=== PATIENT | male | born 1950 | race Caucasian/White ===

== ENCOUNTER 2019-04-09 07:06 | Day surgery (SDC) | payer MEDICARE ==
[2019-04-07 11:21] LABS: BASOPHILS # (AUTO) 0.1 X10'3 (0-0.2); EOSINOPHILS # (AUTO) 0.2 X10'3 (0-0.9); EOSINOPHILS % (AUTO) 2.9 % (0-6); LYMPHOCYTES # (AUTO) 1.4 X10'3 (1.1-4.8); LYMPHOCYTES % (AUTO) 17.6 % (21-51); MEAN CORPUSCULAR HEMOGLOBIN 32.2 PG (27.0-31.0); MEAN CORPUSCULAR VOLUME 92.1 FL (78-98); MEAN PLATELET VOLUME 8.2 FL (7.4-10.4); MONOCYTES # (AUTO) 0.8 X10'3 (0-0.9); MONOCYTES % (AUTO) 9.6 % (2-12); NEUTROPHILS # (AUTO) 5.6 X10'3 (1.8-7.7); NEUTROPHILS % (AUTO) 68.9 % (42-75); PRE OP HEMATOCRIT 51.1 % (42.0-52.0); PRE OP HEMOGLOBIN 17.9 g/dL (14.0-17.9); PRE OP PLATELET COUNT 179 X10'3 (140-440); RED BLOOD COUNT 5.55 X10'6 (4.70-6.10); RED CELL DISTRIBUTION WIDTH 14.2 % (11.5-14.5)
[2019-04-07 11:27] LABS: CLARITY,URINE CLEAR (Clear); COLOR,URINE YELLOW (Yellow); GLUCOSE, URINE NEGATIVE (Neg); KETONES,URINE NEGATIVE (Neg); LEUKOCYTE ESTERASE ,URINE NEGATIVE (Neg); NITRITES, URINE NEGATIVE (Neg); OCCULT BLOOD,URINE NEGATIVE (Neg); PROTEIN,URINE NEGATIVE (Neg); UROBILINOGEN,URINE 0.2 E.U/dL (0.2-1.0)
[2019-04-07 11:28] LABS: UA COLLECTION TYPE CLN CATCH MIDSTREAM
[2019-04-07 11:32] LABS: PRE OP PROTIME 16.1 SECONDS (9.0-12.0)
[2019-04-07 11:34] LABS: PRE OP INR 1.6 INR
[2019-04-07 12:51] LABS: ALBUMIN 3.9 G/DL (3.4-5.0); ALBUMIN/GLOBULIN RATIO 1.3 (1.1-1.5); ALKALINE PHOSPHATASE 95 IU/L (46-116); BLOOD UREA NITROGEN 19 MG/DL (7-18); CALCIUM 8.7 MG/DL (8.5-10.1); CHLORIDE 105 MMOL/L (99-107); CREATININE 1.19 MG/DL (0.60-1.10); PRE OP ALT 41 U/L (30-65); PRE OP ANION GAP 7 (8-16); PRE OP AST 23 U/L (10-37); PRE OP BILIRUB, TOTAL 1.1 MG/DL (0.0-1.0); PRE OP GLUCOSE 88 MG/DL (70-104); PRE OP POTASSIUM 4.7 MMOL/L (3.4-5.1); PRE OP SODIUM 141 MMOL/L (135-145); TOTAL CARBON DIOXIDE 28.7 MMOL/L (24-32); TOTAL PROTEIN 6.8 G/DL (6.4-8.2); eGFR 60 ML/MIN
[~2019-04-09] VITALS: Ht 172.7 cm; Wt 90.5 kg
[2019-04-09] VITALS (11 sets, daily range): BP systolic 114–151; BP diastolic 48–93
[~2019-04-09 07:06] MED LIST: ATOR40TA72 PO; DOCUMENT DATE & TIME OF BETA-BLOCKER PO ONE; METO50TA16 PO; WARF-55 PO; ceFOXitin 2 GM ADDvantage bag 100 ML IV ONE; famotidine 10mg tablet PO ONE; ringers solution, lacted 1,000 ML IV SCH
[2019-04-09 10:30] LABS: PRE OP INR 1.1 INR; PRE OP PROTIME 11.4 SECONDS (9.0-12.0)
[2019-04-09] MEDS ORDERED: ceFAZolin 1000mg inj ONE (11:51)
[2019-04-09] MEDS ORDERED: BUPIVAcaine/PF 2.5 mg/ml (0.25%) 30ml vial ONE (11:51)
[2019-04-09] MEDS ORDERED: proCHLORperazine 10 MG/2 ml inj IV PRN (12:25)
[2019-04-09] MEDS ORDERED: meperidine/PF 25mg/ml syringe IV PRN ×2 (12:25)
[2019-04-09] MEDS ORDERED: ringers solution, lacted 1,000 ML IV SCH (12:25)
[2019-04-09] MEDS ORDERED: ondansetron/PF 4mg/2ml inj IV PRN (12:25)
[2019-04-09] MEDS ORDERED: morphine 4 MG/ML inj SYRINge IV PRN (12:25)
[2019-04-09] MEDS ORDERED: neostigmine methylsulfate 1 MG/ML 10ml vial ONE (13:38)
[2019-04-09] MEDS ORDERED: rocuronium 10mg/ml inj IV ONE (13:38)
[2019-04-09] MEDS ORDERED: desflurane 240ml liquid inh. IH ONE (13:38)
[2019-04-09] MEDS ORDERED: fentaNYL/PF 50MCG/1 ML 2ML syringe ONE (13:50)
[2019-04-09] MEDS ORDERED: propofol inj 20 ML IV ONE (13:51)
[2019-04-09] MEDS ORDERED: LIDOcaine 2% (20mg/ml) 5ml vial ONE (13:51)
[2019-04-09] MEDS ORDERED: midazolam 2 mg/2 ml injection ONE (13:51)
[2019-04-09] MEDS ORDERED: ondansetron/PF 4mg/2ml inj ONE (13:58)
[2019-04-09] MEDS ORDERED: dexamethasone sod phosphate 4mg/ml inj. ONE (13:58)
[2019-04-09] MEDS ORDERED: acetaminophen 1,000mg/100ml IV 100 ML IV ONE (14:20)
[2019-04-09] MEDS ORDERED: glycopyrrolate 0.2mg/ml inj ONE (14:45)
--- NOTE | 2019-04-09 14:48 | NUR ---
Received from OR via [employer] , accompanied by Anesthesiologist WILTON and report given by Anesthesiolgist. PATIENT WITH 20G PIV IN LEFT UE RUNNING LR AT 100. MEDICATED UPON ARRIVAL FOR PAIN. 4 ABDOMINAL LAP SITES PRESENT. PATIENT TOSSING AND TURNING ON [employer] VSS AT THIS TIME. Addendum: 04/09/19 at 1503 by Iam Gusman RN, RN Amended: Links added.
[2019-04-09] MEDS: meperidine/PF 25mg/ml syringe IV PRN ×2 (14:54→15:07)
[2019-04-09] MEDS: morphine 4 MG/ML inj SYRINge IV PRN ×2 (15:18→15:42)
--- NOTE | 2019-04-09 17:28 | NUR ---
ALL DC CRITERIA FOR HOME HAS BEEN ACHIEVED. OUT VIA WHEELCHAIR TO PERSONAL VEHICLE WHERE FAMILY DROVE HIM HOME. IV OUT WITHOUT COMPLICATIONS. DENIES PAIN. PATIENT VSS. Addendum: 04/09/19 at 1731 by Iam Gusman RN, RN Amended: Links added.
== END 2019-04-09 17:11 | disposition home or self-care (01) ==
LOC: PAS 07:06
PROVIDERS: ATTEND Surgery
DX: K80.10 Calculus of gallbladder with chronic cholecystitis without obstruction (principal); I10 Essential (primary) hypertension; E78.5 Hyperlipidemia, unspecified; Z86.718 Personal history of other venous thrombosis and embolism; Z79.01 Long term (current) use of anticoagulants; Z88.5 Allergy status to narcotic agent; Z79.899 Other long term (current) drug therapy
CPT/HCPCS: 36415; 47562; 80053; 81003; 82948; 85025; 85610; 85730; 93005; J0131; J0690; J0694; J1100; J2001; J2175; J2250; J2270; J2405; J2704; J2710; J3010; J3490; J7120; 88304; A4215; A4618; A7000

== ENCOUNTER 2021-05-14 11:31 | Emergency (ER) | payer MEDICARE ==
[~2021-05-14] VITALS: Ht 172.7 cm; Wt 89.3 kg
[~2021-05-14 11:31] MED LIST changes: -DOCUMENT DATE & TIME OF BETA-BLOCKER PO ONE; -ceFOXitin 2 GM ADDvantage bag 100 ML IV ONE; -famotidine 10mg tablet PO ONE; -ringers solution, lacted 1,000 ML IV SCH
[2021-05-14 13:19] LABS: BASOPHILS % (AUTO) 0.6 % (0-1); EOSINOPHILS # (AUTO) 0.1 X10'3 (0-0.9); EOSINOPHILS % (AUTO) 1.6 % (0-6); HEMATOCRIT 50.4 % (42.0-52.0); HEMOGLOBIN 17.5 g/dl (14.0-17.9); LYMPHOCYTES # (AUTO) 1.3 X10'3 (1.1-4.8); MEAN CORPUSCULAR HGB CONC 34.7 g/dL (33.0-36.5); MEAN CORPUSCULAR VOLUME 92.2 FL (78-98); MONOCYTES # (AUTO) 0.7 X10'3 (0-0.9); MONOCYTES % (AUTO) 10.3 % (2-12); NEUTROPHILS # (AUTO) 4.3 X10'3 (1.8-7.7); NEUTROPHILS % (AUTO) 67.5 % (42-75); PLATELET COUNT 160 X10'3 (140-440); RED BLOOD COUNT 5.47 X10'6 (4.70-6.10); RED CELL DISTRIBUTION WIDTH 14.3 % (11.5-14.5); WHITE BLOOD COUNT 6.4 X10'3 (4.5-11.0)
[2021-05-14 13:22] LABS: ALANINE AMINOTRANSFERASE 103 U/L (12-78); ALBUMIN/GLOBULIN RATIO 1.3 (1.1-1.5); ALKALINE PHOSPHATASE 114 IU/L (46-116); ANION GAP 9 (8-16); ASPARTATE AMINO TRANSFERASE 39 U/L (10-37); BLOOD UREA NITROGEN 16 MG/DL (7-18); BUN/CREATININE RATIO 14.5 (5.4-32.0); CALCIUM 9.1 MG/DL (8.5-10.1); CHLORIDE 106 MMOL/L (99-107); GLUCOSE 97 MG/DL (70-104); POTASSIUM 4.8 MMOL/L (3.5-5.1); SODIUM 142 MMOL/L (135-145); eGFR 66 ML/MIN
[2021-05-14 13:40] VITALS: BP 156/78
== END 2021-05-14 13:41 | disposition home or self-care (01) ==
LOC: ER 11:32
DX: M25.562 Pain in left knee (principal); R07.89 Other chest pain; F41.9 Anxiety disorder, unspecified; Z86.718 Personal history of other venous thrombosis and embolism; Z86.711 Personal history of pulmonary embolism; Z88.5 Allergy status to narcotic agent; Z79.899 Other long term (current) drug therapy
CPT/HCPCS: 36415; 71045; 80053; 83880; 84484; 85025; 93005; 93970; 99285

== ENCOUNTER 2024-12-17 10:57 | Day surgery (SDC) | payer MEDICARE ==
[~2024-12-17] VITALS: Ht 172.7 cm; Wt 77.5 kg
[2024-12-17] VITALS (11 sets, daily range): BP systolic 107–145; BP diastolic 53–69; PULSE 51–56; RESP 16; TEMP 98.2; O2SAT 16–96
--- NOTE | 2024-12-17 11:22 | ELECTROCARDIOGRAPH REPORT ---
[facility] Test Date: 2024-12-17 Test Time: 11:19:19 Pat Name: EHSAN KUMAR Department: [facility] Patient ID: [id number] Room: Gender: M Polysomnographic Tech: : 1950 Requested By: TREVER SNELL Order Number: [id number] Reading MD: Dr. AWA Troy Measurements Intervals [place] Rate: 54 P: 23 LA: 170 QRS: 2 QRSD: 97 T: 21 QT: 444 QTc: 421 Interpretive Statements Sinus rhythm Probable left atrial enlargement RSR' in V1 or V2, probably normal variant Electronically Signed On 12-17-2024 14:44:[address] AWA Troy Please click the below link to view image of tracing.
[2024-12-17 11:36] LABS: MEAN PLATELET VOLUME 8.0 FL (7.4-10.4); RED CELL DISTRIBUTION WIDTH 14.8 % (11.5-14.5)
[2024-12-17 11:46] LABS: CREATININE 1.05 MG/DL (0.60-1.10); TOTAL CARBON DIOXIDE 25.1 MMOL/L (24-32); eCRCL 58 ML/MIN; eGFR 69 ML/MIN
[2024-12-17 11:53] LABS: APTT 38 SECONDS (22-32); INR 2.6 INR
--- NOTE | 2024-12-17 11:57 | RADIOLOGY REPORT ---
DI CHEST,TWO VIEWS CLINICAL HISTORY: pain COMPARISON: CHEST,SINGLE VIEW on DOS: 05/14/21 TECHNIQUE: Frontal and lateral view of the chest was obtained FINDINGS: Lines and Tubes: None Lungs: No focal consolidation. Pleura: No effusion. No pneumothorax. Cardiomediastinal contours: Unremarkable Bones: No acute osseous abnormality. IMPRESSION: No acute cardiopulmonary disease.
[2024-12-17] MEDS ORDERED: LIDOcaine 1% 30ml preserv. free vial ONE (12:34)
[2024-12-17] MEDS ORDERED: midazolam 1 mg/ML 2ml injection ONE ×2 (12:34→13:33)
[2024-12-17] MEDS ORDERED: iohexol 350 MG/ML 50ML vial IV ONE (12:34)
[2024-12-17] MEDS ORDERED: fentaNYL/PF 50MCG/1 ML 2ML syringe ONE (12:34)
[2024-12-17] MEDS ORDERED: heparin 1,000 UNITS/NS 500ml 500 ML ONE (13:16)
[2024-12-17] MEDS ORDERED: normal saline 1000ml 1,000 ML IV SCH (14:40)
[2024-12-17] MEDS ORDERED: ondansetron/PF 4mg/2ml inj IV PRN (14:40)
[2024-12-17] MEDS ORDERED: HYDROcodone/acetaminophen 5mg/325mg tablet PO PRN (14:40)
[2024-12-17] MEDS ORDERED: OXAZEpam 15mg capsule PO PRN (14:40)
[2024-12-17] MEDS ORDERED: HYDROcodone/acetaminophen 10/325mg tab PO PRN (14:40)
--- NOTE | 2024-12-17 15:38 | CARDIOLOGY REPORT ---
DATE OF SERVICE: 12/17/2024 DICTATING PHYSICIAN: Luis Fernando Basurto MD PROCEDURES: 1. Left heart catheterization. 2. Left ventriculography. 3. Selective left and right coronary arteriography. 4. Conscious sedation administration 30 minutes. 5. Right iliofemoral arteriogram, Perclose closure device. BRIEF HISTORY AND INDICATION: A 74-year-old male had angina and ventricular arrhythmias, moderate shortness of breath on exercise stress testing. He had PVCs and couplets of PVCs. 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 Risks, benefits, and alternatives of diagnostic heart catheterization were discussed with him and he decided to proceed. Risks included but not restricted to , stroke, myocardial infarction, renal failure, neurologic and vascular complication, bleeding complications, allergic reaction. TECHNIQUE: Following usual sterile preparation and draping, the right groin was infiltrated with 6 mL of 1% lidocaine local anesthetic. Using single wall puncture technique, a J-tip guidewire lead, a 6-[place] sheath was introduced to the right femoral artery. The patient required 3 mg Versed and 100 mcg fentanyl for conscious sedation. He was maintained on oxygen 2 liters per minute, normal saline 100 mL per hour. Selective left and right coronary arteriography, selective left ventriculography in right anterior oblique projection was performed with a 6-[place] femoral, left 4 and right 4 Spike-shaped catheters, 6-[place] pigtail catheter. At termination, right iliofemoral arteriogram was performed. A Perclose device was used. The patient's INR was 2.4. 95 mL of Omnipaque 350 contrast was administered. Fluoroscopy time was 2.3 minutes. Radiation exposure was 6144 cGy/cm2. There were no complications. Pulse was intact. No hematoma. No ecchymosis. FINDINGS: 5 feet 8 inches, 175 pounds, 74-year-old male. AO 114/48, LV 114/3-14. Left ventriculogram, normal contractility with an ejection fraction of 66%. Right iliofemoral artery is smooth. Smooth left main coronary artery with light calcification in the left anterior descending and left circumflex. Left anterior descending has scattered 10% narrowings. The vessel is 2 mm in diameter and rapidly tapers after the first septal. The anterior descending does not reach the apex of the myocardium. There are 2 small first and second intermediate branches, smooth, less than 1 mm in diameter. Left circumflex provides a large posterolateral branch that reaches the apex. The circumflex has scattered 10% narrowings. There is a reciprocally large right coronary with scattered 10% narrowing. Posterior descending and posterolateral branch wrapped around the apex of the myocardium. RESULTS: 1. Normal left ventriculogram, ejection fraction of 66%, left ventricular end-diastolic pressure 14 mmHg. 2. Light calcification of left anterior descending and left circumflex. 3. Smooth left main coronary artery. 4. Scattered 10% narrowing of the left anterior descending. 5. Scattered 10% narrowing in the left circumflex. 6. Scattered 10% narrowing in large right coronary artery. COMMENT: The patient's ventricular arrhythmia has ischemic ST segment depression. Shortness of breath and anginal symptoms are not explicable by heart catheterization findings. Luis Fernando Basurto MD TID: [id number] RECEIPT: [id number] TR/SIR cc: Anurag Dejesus MD
== END 2024-12-17 19:00 | disposition home or self-care (01) ==
LOC: SSTAY O 10:57
PROVIDERS: ATTEND Internal Medicine Cardiovascular Disease
DX: R94.39 Abnormal result of other cardiovascular function study (principal); I25.10 Atherosclerotic heart disease of native coronary artery without angina pectoris; Z79.01 Long term (current) use of anticoagulants; Z79.899 Other long term (current) drug therapy; I10 Essential (primary) hypertension; Z86.718 Personal history of other venous thrombosis and embolism
CPT/HCPCS: 36415; 71046; 80048; 85025; 85610; 85730; 93005; 93458; 99152; 99153; A6258; C1760; J1644; J2003; J2250; J3010; J7030; Q0163; Q9967; Z7610